=== PATIENT | female | born 1990 | race Caucasian/White ===

== ENCOUNTER 2023-04-24 06:39 | Inpatient (IN) ==
[2023-04-24] MEDS: Lactated Ringers 1000 ml BAG 1,000 ML IV ONE ×2 (08:00→14:43)
[2023-04-24 08:34] LABS: ABS Basophils 0.1 10^3/uL (0.0-0.1); ABS Lymphocytes 1.5 10^3/uL (1.0-4.8); ABS Monocytes 0.6 10^3/uL (0.0-0.9); ABS Neutrophils 13.2 10^3/uL (1.5-7.6); ABS Nucleated RBC 0.02 10^3/ul; Eosinophil % 0.2 %; Hematocrit 39.7 % (35-45); Hemoglobin 13.5 g/dL (11.5-14.3); Lymphocyte % 9.6 %; Mean Corpuscular Hemoglobin 30.4 pg (27-33); Mean Corpuscular Hgb Conc 33.9 g/dL (31-36); Mean Corpuscular Volume 89.7 fL (80-97); Nucleated Red Blood Cells % 0.1 %/100WBC (0.0-0.8); Platelet Count 223 10^3/uL (150-450); Red Blood Count 4.43 10^6/uL (3.63-4.92); Red Cell Distribution Width 13.4 % (12-17); White Blood Count 15.4 10^3/uL (3.8-11.8)
[2023-04-24] MEDS: Lactated Ringers 1000 ml BAG 1,000 ML IV SCH ×3 (09:00→20:46)
[2023-04-24] MEDS: OBEPIDURAL (200 ML) 200 ML EPIDURAL SCH (10:30)
[2023-04-24] MEDS ORDERED: Sodium Citrate/Citric Acid LIQ 15 ML UDC PO PRN (10:58)
[2023-04-24 11:39] LABS: Urine Appearance Clear; Urine Bilirubin Negative (Negative); Urine Blood Negative (Negative); Urine Color Light-Yellow; Urine Glucose Negative (Negative); Urine Ketones Negative (Negative); Urine Nitrite Negative (Negative); Urine Protein Negative (Negative); Urine Specific Gravity 1.008 (1.002-1.030); Urine Urobilinogen Negative (Negative); Urine pH 6.5 (5.0-8.0)
[2023-04-24 12:04] LABS: Urine Benzodiazepine Screen None Detected (None Detect); Urine Cannabinoids Screen None Detected (None Detect); Urine Opiates Screen None Detected (None Detect)
[2023-04-24] MEDS: Famotidine IV 10 MG/ML 2 ml VIAL (20 mg) IV SLOW PU ONE (14:34)
[2023-04-24] MEDS: OBEPIDURAL (200 ML) 200 ML EPIDURAL ONE (14:42)
[2023-04-24] MEDS: Lidocaine 1.5% EPI 1:200,000 30 ML SDV ONE (14:42)
[2023-04-24] MEDS: Buffered Lidocaine 1% SYRIN 1 ml INTRADERM ONE (14:42)
[2023-04-24] MEDS: Bupivacaine 0.25% SDV PF 10 ML VIAL INJ ONE (16:33)
[2023-04-24] MEDS: fentaNYL 100 mcg/2 ml 50 MCG/ML VIAL ONE (16:34)
[2023-04-25] MEDS: Oxytocin in LR 20,000 MILLI.UNIT/1,000 ML BAG IV SCH ×2 (00:51→03:50)
[2023-04-25] MEDS: Lidocaine 1% VIAL 10 MG/ML 30 ML VIAL INJ PRN (03:15)
[2023-04-25] MEDS ORDERED: Glycerin ADULT 2.4 gm SUPP PR PRN (03:48)
[2023-04-25] MEDS ORDERED: Lactated Ringers 1000 ml BAG 1,000 ML IV SCH (04:00)
[2023-04-25] MEDS: Witch Hazel PAD JAR TOPICAL PRN (06:37)
[2023-04-25] MEDS: Dibucaine 1% OINT 28.35 GM TUBE PR PRN (06:37)
[2023-04-25 12:28] LABS: ABS Basophils 0.1 10^3/uL (0.0-0.1); ABS Eosinophils 0.1 10^3/uL (0.0-0.5); ABS Lymphocytes 2.1 10^3/uL (1.0-4.8); ABS Monocytes 0.8 10^3/uL (0.0-0.9); ABS Neutrophils 11.5 10^3/uL (1.5-7.6); Eosinophil % 0.5 %; Hematocrit 29.6 % (35-45); Lymphocyte % 14.3 %; Mean Corpuscular Hemoglobin 30.6 pg (27-33); Mean Corpuscular Hgb Conc 33.8 g/dL (31-36); Mean Corpuscular Volume 90.7 fL (80-97); Mean Platelet Volume 9.1 fL (7.5-11.2); Platelet Count 166 10^3/uL (150-450); Red Blood Count 3.26 10^6/uL (3.63-4.92); Red Cell Distribution Width 13.5 % (12-17); White Blood Count 14.4 10^3/uL (3.8-11.8)
[2023-04-26 07:47] LABS: ABS Basophils 0.1 10^3/uL (0.0-0.1); ABS Eosinophils 0.1 10^3/uL (0.0-0.5); ABS Lymphocytes 2.5 10^3/uL (1.0-4.8); ABS Monocytes 0.6 10^3/uL (0.0-0.9); ABS Neutrophils 6.5 10^3/uL (1.5-7.6); ABS Nucleated RBC 0.01 10^3/ul; Eosinophil % 1.3 %; Hematocrit 30.6 % (35-45); Hemoglobin 10.7 g/dL (11.5-14.3); Lymphocyte % 25.4 %; Mean Corpuscular Hemoglobin 31.4 pg (27-33); Mean Corpuscular Hgb Conc 34.8 g/dL (31-36); Mean Corpuscular Volume 90.2 fL (80-97); Mean Platelet Volume 8.8 fL (7.5-11.2); Nucleated Red Blood Cells % 0.1 %/100WBC (0.0-0.8); Platelet Count 195 10^3/uL (150-450); Red Cell Distribution Width 13.5 % (12-17); White Blood Count 9.8 10^3/uL (3.8-11.8)
[2023-04-26] MEDS ORDERED: Polyethylene Glycol 3350 17 GM PACKET PO PRN (13:37)
[2023-04-27 08:30] VITALS: BP 115/64
== END 2023-04-27 14:04 | disposition home or self-care (01) | DRG 807 ==
LOC: MCHOBOUT 06:39 → MCHOB 07:25
PROVIDERS: ADMIT Midwife; ATTEND Advanced Practice Midwife